=== PATIENT | female | born 1950 | race Caucasian/White ===

== ENCOUNTER 2021-10-23 14:57 | Emergency (ER) | payer MEDICARE, OTHER ==
[~2021-10-23] VITALS: Ht 160 cm; Wt 79.4 kg
[~2021-10-23 14:57] MED LIST: ASPIR 8181 MG PO; ASPIRIN81 M2 PO; BP MED; CORDARONE200 MG PO; LISINOPRIL10 MG PO; METOPROLOL SUCC25 MG PO; MUSCLE RELAXER; NAPROXEN500 MG PO; OMEPRAZOLE20 M1 PO; OMEPRAZOLE40 MG PO; PAIN MED; PROBIOTIC & AC1 EACH PO; TRIAMTERENE-HCTZ1 EA PO; XARELTO20 MG PO; Z.0.ATENOLOL50 MG PO; Z.0.CYCLOBENZAPRINE1 PO; Z.0.NAPROXEN500 MG PO
[2021-10-23] MEDS ORDERED: HYDROCODON-ACE1 EA12 PO (16:33)
== END 2021-10-23 16:40 | disposition home or self-care (01) ==
LOC: ER 15:12
DX: S82.831A Other fracture of upper and lower end of right fibula, initial encounter for closed fracture (principal); X50.1XXA Overexertion from prolonged static or awkward postures, initial encounter; Y93.01 Activity, walking, marching and hiking; Y92.89 Other specified places as the place of occurrence of the external cause; I10 Essential (primary) hypertension; I48.91 Unspecified atrial fibrillation
CPT/HCPCS: 99283

== ENCOUNTER 2024-11-27 16:48 | Observation (INO) | payer MEDICARE, OTHER ==
[~2024-11-27] VITALS: Ht 165.1 cm; Wt 82.1 kg
[~2024-11-27 16:48] MED LIST changes: +HYDROCODON-ACE1 EA12 PO
[2024-11-27 18:00] VITALS: TEMP 98.7
[2024-11-27 18:51] LABS: BASOPHILS % 0.3 % (0.0-1.0); EOSINOPHILS % 0.2 % (0.0-6.0); LYMPHOCYTES % 17.4 % (18.0-39.1); MONOCYTES % 8.9 % (4.4-11.3); NEUTROPHILS % 72.6 % (38.7-80.0); RED CELL DISTRIBUTION WIDTH 11.8 % (11.7-14.4)
[2024-11-27] MEDS: ONDANSETRON HCL INJ 2MG/ML 2ML 2 MG/ML VIAL IV STA (19:03)
[2024-11-27] MEDS: GLUCAGON FOR INJ 1 MG VIAL IV ONE (19:03)
[2024-11-27 19:16] LABS: EST GLOMERULAR FILTRATION RATE 78.0 ML/MIN (>=60)
[2024-11-27] MEDS ORDERED: ONDANSETRON HCL INJ 2MG/ML 2ML 2 MG/ML VIAL IV PRN (20:45)
[2024-11-27 21:00] VITALS: PULSE 73; RESP 17
[2024-11-27] MEDS ORDERED: PROPOFOL IV EMULSION 10 MG/ML 20 ML VIAL ONE (21:00)
[2024-11-27] MEDS ORDERED: LIDOCAINE HCL 2% LOCAL INJ 5 ML SDV VIAL INJ ONE (21:00)
[2024-11-27] MEDS ORDERED: FENTANYL CITRATE/PF 100MCG/2 ML INJ ONE (21:01)
[2024-11-27] MEDS ORDERED: SUCCINYLCHOLINE CHLORIDE 20 MG/ML 10ML VIAL ONE (21:01)
[2024-11-27] MEDS ORDERED: ROCURONIUM BROMIDE 1 ML IV ONE (21:01)
[2024-11-27] MEDS ORDERED: METOCLOPRAMIDE HCL 10 MG/2ML VIAL ONE (21:22)
[2024-11-27] MEDS ORDERED: DEXAMETHASONE SOD PHOS INJ 4 MG/ML SDV ONE (21:22)
[2024-11-27] MEDS ORDERED: ONDANSETRON HCL INJ 2MG/ML 2ML 2 MG/ML VIAL ONE (21:22)
[2024-11-27] MEDS ORDERED: FAMOTIDINE 20 MG/2 ML VIAL IV ONE (21:29)
[2024-11-27] MEDS ORDERED: METOPROLOL TARTRATE INJ 1 MG/ML VIAL ONE (21:31)
[2024-11-27] MEDS ORDERED: HYDRALAZINE HCL 20 MG/ML VIAL ONE (21:36)
[2024-11-27] MEDS ORDERED: AMIODARONE HCL100 MG PO (22:55)
[2024-11-27] MEDS: SODIUM CHLORIDE 0.9% 1000ML 1,000 ML IV SCH (22:56)
[2024-11-27] MEDS: METOCLOPRAMIDE HCL 10 MG/2ML VIAL IV SCH (23:03)
[2024-11-27 23:10] VITALS: BP 125/50; PULSE 80; RESP 18; TEMP 99; O2SAT 96
[2024-11-28 04:50] LABS: BASOPHILS % 0.1 % (0.0-1.0); EOSINOPHILS % 0.0 % (0.0-6.0); LYMPHOCYTES % 4.6 % (18.0-39.1); MONOCYTES % 1.1 % (4.4-11.3); NEUTROPHILS % 93.8 % (38.7-80.0); RED CELL DISTRIBUTION WIDTH 11.8 % (11.7-14.4)
[2024-11-28 05:17] VITALS: BP 138/64; PULSE 70; RESP 18; TEMP 98.5; O2SAT 97
[2024-11-28 05:23] LABS: EST GLOMERULAR FILTRATION RATE 87.0 ML/MIN (>=60)
[2024-11-28 07:59] VITALS: BP 135/57; PULSE 72; RESP 18; TEMP 98.3; O2SAT 98
[2024-11-28 08:00] VITALS: BP 135/57; PULSE 72; RESP 18; TEMP 98.3; O2SAT 98
[2024-11-28] MEDS ORDERED: PRAVASTATIN SOD40 MG PO (09:25)
== END 2024-11-28 11:53 | disposition home or self-care (01) ==
LOC: ER 17:18 → ERHOLD 20:43 → MED/SURG 22:34
PROVIDERS: ADMIT Internal Medicine; ATTEND Internal Medicine
DX: T18.128A Food in esophagus causing other injury, initial encounter (principal); K22.2 Esophageal obstruction; I48.91 Unspecified atrial fibrillation; K29.50 Unspecified chronic gastritis without bleeding; K44.9 Diaphragmatic hernia without obstruction or gangrene; E78.5 Hyperlipidemia, unspecified
CPT/HCPCS: 36415 ×2; 43239; 43247; 43450; 80053 ×2; 82948; 85025 ×2; 88305; 99284; G0378 ×2; J0330; J0360; J1100; J1308; J1610; J2003; J2405; J2470 ×2; J2704; J2765 ×2; J3010; J7030 ×2; 45379